=== PATIENT | female | born 1990 ===

== ENCOUNTER 2020-03-28 10:29 | Outpatient (REF) | payer OTHER, SELFPAY | END 2020-03-28 10:30 | disposition home or self-care (01) | LOC: HO.LAB 10:29 | PROVIDERS: Visit Provider Internal Medicine | DX: Z20.828 Contact with and (suspected) exposure to other viral communicable diseases (principal) | CPT/HCPCS: C9803; U0003 ==

== ENCOUNTER 2020-08-19 12:34 | Outpatient (REF) | payer OTHER, SELFPAY ==
[2020-08-19 13:02] LABS: COVID-19 Test Negative (Negative)
== END 2020-08-19 12:35 | disposition home or self-care (01) ==
LOC: HO.LAB 12:34
PROVIDERS: Visit Provider Internal Medicine
DX: Z20.822 Contact with and (suspected) exposure to COVID-19 (principal)
CPT/HCPCS: 36415; 87635; C9803

== ENCOUNTER 2020-09-01 11:16 | Emergency (ER) | payer SELFPAY ==
[2020-09-01 11:26] VITALS: BP 151/90; PULSE 90; RESP 16; TEMP 36.7; O2SAT 99; BMI 30.2
== END 2020-09-01 13:12 | disposition left against medical advice (07) ==
PROVIDERS: Emergency Provider Emergency Medicine
DX: Z11.3 Encounter for screening for infections with a predominantly sexual mode of transmission (principal)
CPT/HCPCS: 99281; 99282

== ENCOUNTER 2020-11-21 13:23 | Emergency (ER) | payer OTHER, SELFPAY ==
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
[2020-11-21 13:51] VITALS: BP 119/58; PULSE 74; RESP 16; O2SAT 99; BMI 26.4
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
== END 2020-11-21 14:40 | disposition home or self-care (01) ==
LOC: HO.ED 14:33
PROVIDERS: Emergency Provider Emergency Medicine Emergency Medical Services
DX: S50.11XA Contusion of right forearm, initial encounter (principal); V43.52XA Car driver injured in collision with other type car in traffic accident, initial encounter; W22.11XA Striking against or struck by driver side automobile airbag, initial encounter; Y93.89 Activity, other specified; Y92.414 Local residential or business street as the place of occurrence of the external cause; Y99.9 Unspecified external cause status
CPT/HCPCS: 73090; 99283

== ENCOUNTER 2021-03-03 11:02 | Outpatient (REF) | payer OTHER, SELFPAY ==
[2021-03-03 12:14] LABS: COVID-19 Test Negative (Negative)
== END 2021-03-03 11:03 | disposition home or self-care (01) ==
LOC: HO.LAB 11:02
PROVIDERS: Visit Provider Internal Medicine
DX: Z20.822 Contact with and (suspected) exposure to COVID-19 (principal)
CPT/HCPCS: 36415; 87635; C9803

== ENCOUNTER 2022-08-22 08:43 | Emergency (ER) | payer SELFPAY ==
--- NOTE | ~2022-08-22 | XR_ITS ---
EXAMINATION: XR CHEST CLINICAL INFORMATION: Cough COMPARISON: None available. TECHNIQUE: Frontal view of the chest was obtained. FINDINGS: Lungs clear. No pleural effusions. Heart and pulmonary vessels are normal. XR/XR chest 1V IMPRESSION: No active disease.
[2022-08-22 08:57] VITALS: BP 124/65; PULSE 88; RESP 16; TEMP 36.6; O2SAT 100; BMI 28.3
[2022-08-22] MEDS: Acetaminophen 325 MG TABLET 975 MG PO (09:01)
--- NOTE | 2022-08-22 09:41 | ED_ITS ---
HPI - General Adult General Chief complaint: General Medical Stated complaint: vomiting , bad migraines Time Seen by Provider: 08/22/22 09:31 Source: patient Mode of arrival: ambulatory Limitations: no limitations History of Present Illness HPI narrative: Patient is a 32-year-old female with no significant past medical history presenting with 1 week of nasal congestion, sinus pressure, productive cough and headaches. She also reports 2 days of nausea, vomiting, and diarrhea but states she has tolerated fluids this morning. She denies any fever or abdominal pain. She has been using nasal spray for her symptoms but has not taken any other [id number] medications. 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 She states she has been employed there for approximately 1 and half months. She reports other please have similar complaints. She reports her headache has improved after being medicated with Tylenol in triage. Related Data Previous Rx's Medication Instructions Recorded cyclobenzaprine 10 mg tablet 10 mg PO TID PRN muscle spasm #10 11/21/20 tabs ibuprofen 600 mg tablet 600 mg PO Q8H PRN fever or pain 11/21/20 #20 tabs amoxicillin 875 mg-potassium 1 tab PO BID #14 tabs 08/22/22 clavulanate 125 mg tablet ondansetron 4 mg disintegrating 4 mg PO Q8H PRN nausea and 08/22/22 tablet vomiting #10 tabs Allergies Allergy/AdvReac Type Severity Reaction Status Date / Time bee pollen [bee stings] Allergy Anaphylaxis Verified 08/22/22 09:00 pollen extracts Allergy Eye Verified 08/22/22 09:00 Swelling Review of Systems Review of Systems: Yes all other systems are reviewed and are negative [facility] Past Medical History Medical History Robison palsy Social History Social History Advance Directives: No Physical Exam ED Vital Signs: Vital Signs - 24 hr 08/22/22 08:57 Temperature 98 F Pulse Rate 88 Respiratory Rate 16 Blood Pressure 124/65 Pulse Oximetry 100 Oxygen Delivery Method Room Air BMI result Body Mass Index 28.3 Appearance: Alert. Oriented X3. No acute distress. Head: normocephalic, atraumatic. Eyes: Pupils equal, round and reactive to light. ENT: Mild maxillary sinus tenderness to palpation. Nasal turbinates pink, no bogginess. Pharynx normal. No tonsillar swelling or exudate. TMs pearly whitlock with cone of light visible bilaterally. Neck: Normal inspection. Neck supple. No cervical adenopathy. CVS: Normal heart rate and rhythm. Pulses normal. Respiratory: No respiratory distress. Breath sounds normal. Abdomen: Soft and nontender. +BS x4 Skin: Skin warm and dry. Normal skin color. Normal skin turgor. No rashes. Extremities: No lower extremity edema. No joint swelling. Neuro/psych: Oriented X 3. No motor deficit. No sensory deficit. CN II-XII intact. Normal speech and cognition. Medications Administered Discontinued Medications Generic Name Dose Route Start Last Admin Trade Name Freq PRN Reason Stop Dose Admin Acetaminophen 975 mg 08/22/22 08:59 08/22/22 09:01 Acetaminophen 325 Mg Tablet PO 08/22/22 09:00 975 mg ONCE ONE Administration Medical Decision Making Medical Decision Making [facility] Narrative: Patient is a 32-year-old female presenting with one week of sinus congestion, pressure, and dark mucous/sputum as well as headaches and two days of nausea, vomiting, and diarrhea. She has tolerated fluids this morning and has no abdominal pain to palpation, is afebrile, nontoxic appearing, so decreased suspicion for appendicitis, cholecystitis, pancreatitis, obstruction, malignancy or mass. Most likely viral gastritis. Considered pneumonia or bronchitis, chest x-ray normal, lung sounds CTA. Will treat for sinusitis at this time with augmentin twice daily for 7 days and have patient follow up with ENT. Advised patient to continue to use Tylenol or ibuprofen for her headaches as her pain improved after receiving Tylenol in triage. Also prescribed Zofran for nausea so patient is able to tolerate her Augmentin. Red flag symptoms for which patient should return to the emergency department were discussed. Differential Diagnosis Differential Diagnoses: The differential diagnosis associated with the presentation includes See above note. Independent Interpretation I performed an independent interpretation of an: Plain X-Ray Interpretation: I independently reviewed the x-ray and agree with the radiologist's interpretation. Radiology Impression Discussion of test interpretation with radiology: I have reviewed the radiologist's reading. Radiologist Impression: FINDINGS: Lungs clear. No pleural effusions. Heart and pulmonary vessels are normal. XR/XR chest 1V IMPRESSION: No active disease. ? Tests considered The following testing was considered but not selected: Considered CBC, BMP for nausea/vomiting, patient is otherwise healthy, nontoxic appearing 32-year-old, has tolerated fluids today. Prescription Management I considered prescription management with: Antibiotic and Other (antiemetic) Discharge Plan Discharge Clinical Impression: Sinusitis, acute, maxillary, Viral gastritis Patient Disposition: Home, Self-Care Instructions: Gastritis (DC), Sinusitis (ED) Additional Instructions: You are being prescribed ondansetron as needed for nausea. You should take the full course of antibiotics (augmentin) for your sinus infection, even if your symptoms improve. You are being referred to ENT for your sinus symptoms. You should use Tylenol or ibuprofen per package instructions as needed for your headaches. Return to the emergency department if you develop fever or worsening symptoms. Prescriptions: New amoxicillin-pot clavulanate 875-125 mg tablet 1 tab PO BID Qty: 14 0RF ondansetron 4 mg tablet,disintegrating 4 mg PO Q8H PRN (Reason: nausea and vomiting) Qty: 10 0RF No Action cyclobenzaprine 10 mg tablet 10 mg PO TID PRN (Reason: muscle spasm) Qty: 10 0RF ibuprofen 600 mg tablet 600 mg PO Q8H PRN (Reason: fever or pain) Qty: 20 0RF Referrals: Olayinka Guo [Physician] - Stand Alone Forms: Work/School Release Interventions: ED Discharge Assessment Last Done: 08/22/22 10:07
--- NOTE | 2022-08-22 10:07 | PC.NURSE ---
eval and dc by pa
== END 2022-08-22 10:12 | disposition home or self-care (01) ==
PROVIDERS: Emergency Provider Emergency Medicine
DX: J01.90 Acute sinusitis, unspecified (principal); A08.4 Viral intestinal infection, unspecified; R05.9 Cough, unspecified; Z79.899 Other long term (current) drug therapy
CPT/HCPCS: 71045; 99283

== ENCOUNTER 2022-09-13 10:45 | Emergency (ER) | payer OTHER, SELFPAY ==
[2022-09-13 10:48] VITALS: BP 124/80; PULSE 79; RESP 20; TEMP 36.8; O2SAT 97; BMI 27.3
--- NOTE | 2022-09-13 11:20 | ED_ITS ---
HPI - Dental/Oral General Chief complaint: Dental/Oral <ENMA Abbott - Last Filed: 09/13/22 17:09> Stated complaint: mouth infection <ENMA Abbott - Last Filed: 09/13/22 17:09> Time Seen by Provider: 09/13/22 12:18 <ENMA Abbott - Last Filed: 09/13/22 17:09> Related Data Home medications: Previous Rx's Medication Instructions Recorded cyclobenzaprine 10 mg tablet 10 mg PO TID PRN muscle spasm #10 11/21/20 tabs ibuprofen 600 mg tablet 600 mg PO Q8H PRN fever or pain 11/21/20 #20 tabs ondansetron 4 mg disintegrating 4 mg PO Q8H PRN nausea and 08/22/22 tablet vomiting #10 tabs amoxicillin 500 mg tablet 500 mg PO BID 10 days #20 tabs 09/13/22 chlorhexidine gluconate 0.12 % 15 ml buccal TID #118 mL 09/13/22 mouthwash erythromycin 5 mg/gram (0.5 %) eye 0.5 inch ophthalmic (eye) BID #3.5 01/02/23 ointment grams <ENMA Abbott - Last Filed: 09/13/22 17:09> Allergies/adverse reactions: Allergies Allergy/AdvReac Type Severity Reaction Status Date / Time bee pollen [bee stings] Allergy Anaphylaxis Verified 01/02/23 13:08 pollen extracts Allergy Eye Verified 01/02/23 13:08 Swelling <ENMA Abbott - Last Filed: 09/13/22 17:09> [facility] Past Medical History Medical History: Medical History Robison palsy <ENMA Abbott - Last Filed: 09/13/22 17:09> Social History Social History: Social History Alcohol intake: current Alcohol intake frequency: a few times a month Smoked in Last 30 Days: Yes Use of substances other than those prescribed or required for medical reasons: Yes Substance Use Type: Marijuana Substance Use Frequency: Daily Last Used Substance: Just Prior to Admission Advance Directives: No Advance Directives Information Provided: No <ENMA Abbott - Last Filed: 09/13/22 17:09> Physical Exam Vital Signs: Vital Signs: Last Vital Signs Temp 98.2 F 09/13/22 10:48 Pulse 79 09/13/22 10:48 Resp 20 09/13/22 10:48 BP 124/80 09/13/22 10:48 Pulse Ox 97 09/13/22 10:48 O2 Del Method Room Air 09/13/22 10:48 BMI result Body Mass Index 27.3 <ENMA Abbott - Last Filed: 09/13/22 17:09> Vital Signs: Last Vital Signs Temp 98.2 F 09/13/22 10:48 Pulse 79 09/13/22 10:48 Resp 20 09/13/22 10:48 BP 124/80 09/13/22 10:48 Pulse Ox 97 09/13/22 10:48 O2 Del Method Room Air 09/13/22 10:48 BMI result Body Mass Index 27.3 <SAMINA Owen-MEHDI - Last Filed: 01/11/23 21:04> Course Course Course Narrative: This is an RME: Additional HPI, ROS, PE not included below will be deferred to primary provider. 32 year old female presents w/ abscess to left lower K9 w/ severe pain radiating to L ear. Patient pulled this tooth out herself last year. Not scheduled to see a dentist. No fevers or chills PE w/ abbess to L lower tooth. Plan will likely need I&D. <ENMA Abbott - Last Filed: 09/13/22 17:09> Reevaluation(s) Reevaluation #1: patient called and stated she could not afford Augmentin, will call and switch the antibiotic to a cheaper antibiotic Amox 500 mg po BID <ENMA Abbott Last Filed: 09/13/22 17:09> Medications Administered Discontinued Medications Generic Name Dose Route Start Last Admin Trade Name Freq PRN Reason Stop Dose Admin Amoxicillin/Clavulanate Potassium 875 mg 09/13/22 12:36 09/13/22 13:14 Amoxicillin/Potassium Clav 875 Mg Tablet PO 09/13/22 12:37 875 mg ONCE ONE Administration <ENMA Abbott Last Filed: 09/13/22 17:09> Medications Administered Discontinued Medications Generic Name Dose Route Start Last Admin Trade Name Omero PRN Reason Stop Dose Admin Amoxicillin/Clavulanate Potassium 875 mg 09/13/22 12:36 09/13/22 13:14 Amoxicillin/Potassium Clav 875 Mg Tablet PO 09/13/22 12:37 875 mg ONCE ONE Administration <RAVINDER Owen - Last Filed: 01/11/23 21:04> Medical Decision Making Medical Decision Making MDM Narrative: 32 year old female presents w/ abscess to left lower K9 w/ severe pain radiating to L ear. Patient pulled this tooth out herself last year. Not scheduled to see a dentist. No fevers or chills . Patient popped abscess herself. Draining at this point. No tenesmus, no facial swelling. Patient is able to tolerate the pain at this time. Will give her 1st dose of antibiotic and patient will need to follow-up with oral surgeon. <RAVINDER Owen - Last Filed: 01/11/23 21:04> Discharge Plan Discharge Clinical Impression: Dental caries, Dental abscess <ENMA Abbott - Last Filed: 09/13/22 17:09> Patient Disposition: Home, Self-Care <ENMA Abbott - Last Filed: 09/13/22 17:09> Instructions: Dental Abscess (ED) <ENMA Abbott - Last Filed: 09/13/22 17:09> Additional Instructions: you were seen here today for dental abscess. Please make sure that urines your mouth few times a day with mouth flush. Please make sure you take your antibiotics for 2 weeks. Follow-up with a dentist as soon as he can get an appointment. Please finish all of your antibiotics. You may return to emergency department if your symptoms will get worse or you experience any additional concerning symptoms. <ENMA Abbott - Last Filed: 09/13/22 17:09> Prescriptions: New chlorhexidine gluconate 0.12 % mouthwash 15 ml buccal TID Qty: 118 0RF amoxicillin 500 mg tablet 500 mg PO BID 10 Days Qty: 20 0RF Discontinued amoxicillin-pot clavulanate 875-125 mg tablet 1 tab PO BID Qty: 14 0RF No Action cyclobenzaprine 10 mg tablet 10 mg PO TID PRN (Reason: muscle spasm) Qty: 10 0RF ibuprofen 600 mg tablet 600 mg PO Q8H PRN (Reason: fever or pain) Qty: 20 0RF ondansetron 4 mg tablet,disintegrating 4 mg PO Q8H PRN (Reason: nausea and vomiting) Qty: 10 0RF erythromycin 5 mg/gram (0.5 %) ointment 0.5 inch ophthalmic (eye) BID Qty: 3.5 1RF <ENMA Abbott - Last Filed: 09/13/22 17:09> Stand Alone Forms: Work/School Release <ENMA Abbott - Last Filed: 09/13/22 17:09> Interventions: ED Discharge Assessment Last Done: 09/13/22 13:14 <ENMA Abbott - Last Filed: 09/13/22 17:09> Discharge Date/Time: 09/13/22 13:15 <ENMA Abbott - Last Filed: 09/13/22 17:09>
[2022-09-13] MEDS: Amoxicillin/Potassium Clav 875 MG TABLET PO (13:14)
== END 2022-09-13 13:15 | disposition home or self-care (01) ==
PROVIDERS: Emergency Provider Student in an Organized Health Care Education/Training Program
DX: K02.9 Dental caries, unspecified (principal); K04.7 Periapical abscess without sinus; Z79.899 Other long term (current) drug therapy
CPT/HCPCS: 99283

== ENCOUNTER 2023-01-02 11:54 | Emergency (ER) | payer SELFPAY ==
[2023-01-02 13:08] VITALS: BP 106/64; PULSE 72; RESP 16; TEMP 37.5; O2SAT 100; BMI 30.4
--- NOTE | 2023-01-02 13:09 | ED.EYEPROB ---
HPI - Eye Problem General Chief complaint: Eye Problems Stated complaint: something stuck in eye Time Seen by Provider: 01/02/23 15:14 Source: patient Mode of arrival: ambulatory Limitations: no limitations History of Present Illness HPI Narrative: 32 year old female with no chronic medical history presents to ER for evaluation of right eyelid pain and swelling for the last month. Patient denies any known injury or foreign body at time of onset, but states she was working on a work site and may have gotten dirt in her eye. States the lesion on her upper right eyelid is intermittently painful and itchy. States she woke up today with yellow crusting to her eyelashes. Reports trial of OTC stye medication and warm compresses without relief. Denies headache, change in vision, fevers, chills, nausea, vomiting. Denies known sick contact, recent URI, or contact lens use. MD chief complaint: eye pain and eye redness Onset (ago): month(s) (1 month ago.) Onset description: gradual Duration: progressively worsening Location: right eye Eye Symptoms: redness, pain, foreign body sensation, itching, discharge and photophobia Mechanism: none Treatments Prior to Arrival: OTC eye drops and other (Warm compress) Related Data Previous Rx's Medication Instructions Recorded cyclobenzaprine 10 mg tablet 10 mg PO TID PRN muscle spasm #10 11/21/20 tabs ibuprofen 600 mg tablet 600 mg PO Q8H PRN fever or pain 11/21/20 #20 tabs ondansetron 4 mg disintegrating 4 mg PO Q8H PRN nausea and 08/22/22 tablet vomiting #10 tabs amoxicillin 500 mg tablet 500 mg PO BID 10 days #20 tabs 09/13/22 chlorhexidine gluconate 0.12 % 15 ml buccal TID #118 mL 09/13/22 mouthwash erythromycin 5 mg/gram (0.5 %) eye 0.5 inch ophthalmic (eye) BID #3.5 01/02/23 ointment grams Allergies Allergy/AdvReac Type Severity Reaction Status Date / Time bee pollen [bee stings] Allergy Anaphylaxis Verified 01/02/23 13:08 pollen extracts Allergy Eye Verified 01/02/23 13:08 Swelling Review of Systems Review of Systems: Yes all other systems are reviewed and are negative PMFSH Past Medical History Medical History Robison palsy Social History Social History Alcohol intake: current Alcohol intake frequency: a few times a month Smoked in Last 30 Days: Yes Use of substances other than those prescribed or required for medical reasons: Yes Substance Use Type: Marijuana Substance Use Frequency: Daily Last Used Substance: Just Prior to Admission Advance Directives: No Advance Directives Information Provided: No Physical Exam Vital Signs: Vital Signs: Last Vital Signs Temp 98.2 F 01/02/23 16:34 Pulse 63 01/02/23 16:34 Resp 16 01/02/23 16:34 BP 114/52 L 01/02/23 16:34 Pulse Ox 100 01/02/23 16:34 O2 Del Method Room Air 01/02/23 16:34 BMI result Body Mass Index 30.4 Const: General: cooperative, healthy appearing, comfortable and no acute distress Orientation/consciousness: patient oriented x3 Eyes: Alignment and Position: alignment normal Eyelids: Yes eyelid abnormality (Erythematous, fluctuant, tender 5 mm abscess to upper external right eyelid) Conjunctivae: conjunctivae normal Sclerae: sclerae normal Corneas: corneas normal Pupils: Equal, round and reactive pupils present and Pupil accommodation reflex normal EOM: EOMs intact bilaterally Direct Ophthalmoscopy: normal light reflex Neuro: General: patient oriented x3 Cranial nerves: Yes Equal, round and reactive pupils present Course Course Course Narrative: This is a rapid medical exam. deferred additional HPI, ROS, PE to primary provider. 32yo female here with complaints of bump to right upper eyelid x 1 month. Trying warm compresses, topical over the counter antibiotic creams. ?chalazion, ?conducive to I&D VSS Medical Decision Making Medical Decision Making MDM Narrative: 32 year old female presents to ER for evaluation of intermittently painful and irritated lump on eyelid. Physical exam reveals erythematous and fluctuant nodule to right, upper, external eyelid. Vital signs are unremarkable, patient is afebrile. Injected 18 mm gauge needle and drained purulent fluid. Will discharge home with erythromycin ointment. Recommend continuation of warm compresses and avoidance of eye makeup. Differential Diagnosis Differential Diagnoses: The differential diagnosis associated with the presentation includes Hordeolum, chalazion, orbital cellulitis, ocular foreign body, blepharitis External Record Review External record reviewed: Prior outpatient labs Prescription Management I considered prescription management with: Pain Medication and Antibiotic Procedures Abscess I/D Site: face Side (if applicable): right Technique: needle aspiration (Cleaned with alcohol prep pad. Opened abscess with 18 mm gauge needle. Manually expressed purulent fluid. Applied pressure with gauze to stop bleeding. ) Critical Care Time Critical Care Time Critical Care Time: No Discharge Plan Discharge Clinical Impression: Hordeolum externum of right upper eyelid Patient Disposition: Home, Self-Care Instructions: Philip (ED) Additional Instructions: You were seen for stye on right upper eyelid. We were able to drain the pus from it. Fluid may continue to drain from the nodule. Use warm compresses several times per day. Keep area clean. Apply erythromycin ointment directly to nodule. Continue to use warm compresses for pain. Avoid eye makeup until improvement. Prescriptions: New erythromycin 5 mg/gram (0.5 %) ointment 0.5 inch ophthalmic (eye) BID Qty: 3.5 1RF No Action cyclobenzaprine 10 mg tablet 10 mg PO TID PRN (Reason: muscle spasm) Qty: 10 0RF ibuprofen 600 mg tablet 600 mg PO Q8H PRN (Reason: fever or pain) Qty: 20 0RF ondansetron 4 mg tablet,disintegrating 4 mg PO Q8H PRN (Reason: nausea and vomiting) Qty: 10 0RF chlorhexidine gluconate 0.12 % mouthwash 15 ml buccal TID Qty: 118 0RF amoxicillin 500 mg tablet 500 mg PO BID 10 Days Qty: 20 0RF Referrals: Chris Lambert [Physician] -
[2023-01-02 16:34] VITALS: BP 114/52; PULSE 63; RESP 16; TEMP 36.8; O2SAT 100
--- NOTE | 2023-01-02 16:39 | PC.NURSE ---
pt a&ox3. respirations even and unlabored. pt reports developing a lump on her eye gradually that has no relief with over the counter medications. pt reports going to [facility] and getting sty treatment and using warm and cold compress. pt denies any pain at this time. pt able to see clearly and denies any vision changes. pt denies nausea, vomiting, chills and fever.
== END 2023-01-02 17:32 | disposition home or self-care (01) ==
PROVIDERS: Emergency Provider Emergency Medicine
DX: H00.011 Hordeolum externum right upper eyelid (principal); H57.11 Ocular pain, right eye
CPT/HCPCS: 99283; 99284

== ENCOUNTER 2023-09-11 14:39 | Emergency (ER) | payer SELFPAY | END 2023-09-11 17:27 | disposition left against medical advice (07) | PROVIDERS: Emergency Provider Emergency Medicine | DX: Z04.1 Encounter for examination and observation following transport accident (principal); G89.11 Acute pain due to trauma; M79.606 Pain in leg, unspecified; M54.9 Dorsalgia, unspecified ==

== ENCOUNTER 2024-04-29 10:53 | Emergency (ER) | payer OTHER, SELFPAY ==
--- NOTE | ~2024-04-29 | XR_ITS ---
CLINICAL HISTORY: trauma 3 views lumbar spine Comparison: None Findings: Normal vertebral body alignment. No acute fractures or dislocation. No significant degenerative change. IMPRESSION: No acute findings. This document has been electronically signed by: Tho Romero MD on 04/29/2024 11:52:54
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
--- NOTE | ~2024-04-29 | XR_ITS ---
CLINICAL HISTORY: trauma 4 view left knee Comparison: None Findings: No fractures or dislocations. No significant loss of joint space, osteophytes, or erosions. No joint effusion. No radiopaque foreign body. IMPRESSION: 1. No acute findings. This document has been electronically signed by: Tho Romero MD on 04/29/2024 11:52:41
[2024-04-29 11:10] VITALS: BP 117/61; PULSE 100; RESP 18; TEMP 36.4; O2SAT 94; BMI 32.3
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
[2024-04-29 12:28] VITALS: BP 110/53; PULSE 89; RESP 16; TEMP 36.9; O2SAT 98
[2024-04-29 12:38] VITALS: BP 110/53; PULSE 89; RESP 16; TEMP 36.9; O2SAT 98
== END 2024-04-29 12:39 | disposition home or self-care (01) ==
PROVIDERS: Emergency Provider Emergency Medicine
DX: S39.012A Strain of muscle, fascia and tendon of lower back, initial encounter (principal); S80.02XA Contusion of left knee, initial encounter; S80.01XA Contusion of right knee, initial encounter; V43.12XA Car passenger injured in collision with other type car in nontraffic accident, initial encounter; Y93.89 Activity, other specified; Y92.810 Car as the place of occurrence of the external cause; Y99.9 Unspecified external cause status
CPT/HCPCS: 72100; 73564; 99283

== ENCOUNTER → 2024-04-29 11:10 | Outpatient (BNV) | payer OTHER, SELFPAY | PROVIDERS: Emergency Provider Emergency Medicine; Visit Provider Radiology Vascular & Interventional Radiology | DX: S80.01XA Contusion of right knee, initial encounter (principal); S80.02XA Contusion of left knee, initial encounter; M54.9 Dorsalgia, unspecified | CPT/HCPCS: 72100; 73564 ==